=== PATIENT | male | born 1945 | race Caucasian/White ===

== ENCOUNTER 2017-03-01 05:38 | Inpatient (IN) ==
[2017-02-26 15:43] LABS: Basophils # 0.1 10*3/uL (0.0-0.2); Eosinophils # 1.2 10*3/uL (0.0-0.87); Eosinophils % 15.2 % (0.00-10.9); Hemoglobin 14.1 GM/DL (14.0-18.0); Immature Granulocytes % 0.1 %; Immature Granulocytes Absolute 0.01 #; Lymphocytes # 2.3 10*3/uL (1.4-4.0); Lymphocytes % 29.3 % (21.2-54.2); Mean Corpuscular HGB Conc 33.6 GM/DL (32-36); Mean Corpuscular Hemoglobin 28 PG (27-34); Mean Corpuscular Volume 83.8 FL (87-102); Mean Platelet Volume 10.2 FL (9.6-12.0); Monocytes # 0.8 10*3/uL (0.11-0.8); Monocytes % 9.9 % (1.7-12.7); Neutrophils # 3.4 10*3/uL (1.4-7.4); Neutrophils % 44.5 % (38.7-73.9); Platelet Count 153 T/CUMM (130-400); Red Blood Count 5.01 MC/CUMM (3.8-5.5); Red Cell Distribution Width 19.5 % (9.3-17.3); White Blood Count 7.7 T/CUMM (4-12)
[2017-02-26 16:17] LABS: Calcium 9.2 MG/DL (8.5-10.1); Osmolality,Calculated 274.8 MOS/KG (273-304); Potassium 4.5 MMOL/L (3.5-5.1)
[2017-02-26 17:58] LABS: Eosinophils 20 % (0-10); Lymphocytes 35 % (20-55); Segmented Neutrophils 42 % (50-85); Total Cells Counted 100
[2017-02-26 17:59] LABS: Platelet Estimate Decreased
[2017-02-26 18:00] LABS: Hypochromasia 1+; Microcytosis 1+
[2017-03-01] MEDS ORDERED: ALVIMOPAN 12 MG CAPSULE PO ONE (06:00)
[2017-03-01] MEDS ORDERED: cefOXitin 1,000 MG in SYRINGE 1 EACH IV ONE (06:00)
[2017-03-01] MEDS ORDERED: BUPIVACAINE 0.5% /EPI 10 ML VIAL ONE (06:23)
[2017-03-01] MEDS: LACTATED RINGERS 1,000 ML IV SCH (07:10)
[2017-03-01] MEDS ORDERED: ALVIMOPAN 12 MG CAPSULE ONE (07:15)
[2017-03-01] MEDS ORDERED: IPRATROPIUM 500 MCG/2.5 ML NEB RESP TX ONE (07:29)
[2017-03-01] MEDS ORDERED: FAMOTIDINE 20 MG TABLET PO ONE (07:29)
[2017-03-01] MEDS ORDERED: EPINEPHrine 1 MG/ML VIAL ONE (08:40)
[2017-03-01] MEDS ORDERED: PROPOFOL 200 MG/20 ML VIAL IV ONE ×2 (09:00→11:45)
[2017-03-01] MEDS ORDERED: ROCURONIUM 100 MG/10 ML VIAL IV ONE ×2 (09:00→11:46)
[2017-03-01] MEDS ORDERED: ONDANSETRON 4 MG/2 ML VIAL ONE (09:00)
[2017-03-01] MEDS ORDERED: SUCCINYLCHOLINE 200 MG/10 ML VIAL ONE ×2 (09:00→11:46)
[2017-03-01] MEDS ORDERED: GLYCOPYRROLATE 0.4 MG/2 ML VIAL ONE ×2 (09:00→11:45)
[2017-03-01] MEDS ORDERED: SEVOFLURANE 1 UNIT/15 MINUTE INH ONE ×2 (09:00→11:45)
[2017-03-01] MEDS ORDERED: LIDOCAINE 100 MG/5 ML SYRINGE ONE (09:00)
[2017-03-01] MEDS ORDERED: PHENYLEPHRINE 1 MG/10 ML SYRINGE IV ONE (09:00)
[2017-03-01] MEDS ORDERED: NEOSTIGMINE 10 MG/10 ML VIAL ONE ×2 (09:00→11:46)
[2017-03-01 10:38] LABS: Apearance,Urine CLEAR (Clear); Bilirubin,Urine Negative (Negative); Blood, Urine Negative (Negative); Glucose,Urine (UA) 50 mg/dL (Negative); Hyaline Casts,Urine 2 /LPF (0-3); Ketones,Urine Negative (Negative); Mucus,Urine Occasional /LPF (Occasional); Nitrite,Urine Negative (Negative); Protein,Urine Negative; RBC,Urine 1 /HPF (0-4); Urine Color Yellow (Yellow); Urine Specific Gravity 1.009 (1.001-1.035); Urine Urobilinogen < 2.0 EU/DL (0.2-1.0); WBC,Urine <1 /HPF (0-6)
[2017-03-01] MEDS ORDERED: ONDANSETRON 4 MG/2 ML VIAL IV PRN (11:09)
[2017-03-01] MEDS ORDERED: GLUCAGON 1 MG VIAL IM PRN (11:13)
[2017-03-01] MEDS ORDERED: DEXTROSE 50% 25 GM/50 ML VIAL IV PRN (11:13)
[2017-03-01] MEDS ORDERED: BUPIVACAINE 0.25% /EPI 10 ML VIAL ONE (11:20)
[2017-03-01] MEDS ORDERED: DEXTROSE 5% LACTATED RINGERS 1,000 ML IV SCH (11:30)
[2017-03-01] MEDS ORDERED: SUFentanil 50 MCG/ML AMP ONE (11:44)
[2017-03-01] MEDS ORDERED: DEXAMETHASONE 10 MG/1 ML VIAL ONE (11:45)
[2017-03-01] MEDS ORDERED: ACETAMINOPHEN 1,000 MG/100 ML VIAL IV ONE (11:46)
[2017-03-01] MEDS ORDERED: LACTATED RINGERS 1,000 ML IV ONE (11:46)
[2017-03-01] MEDS ORDERED: hydrALAZINE 20 MG/1 ML VIAL ONE (11:50)
[2017-03-01] MEDS ORDERED: MORPHINE PCA 30 MG/30 ML SYRINGE IV ONE (11:53)
[2017-03-01] MEDS ORDERED: hydrALAZINE 20 MG/1 ML VIAL IV PRN (11:53)
[2017-03-01] MEDS: MORPHINE PCA 30 MG/30 ML SYRINGE IV SCH (11:54)
[2017-03-01 12:42] LABS: Hematocrit 43.1 VOL% (42.0-52.0); Hemoglobin 14.2 GM/DL (14.0-18.0)
[2017-03-01] MEDS ORDERED: ALBUTEROL 2.5 MG/3 ML NEB RESP TX PRN (13:00)
[2017-03-01] MEDS: INSULIN REGULAR 100 UNIT/ML SUBCUT SCH ×3 (13:49→18:50)
[2017-03-01] MEDS: SODIUM CHLORIDE 0.9% 1,000 ML IV SCH ×2 (14:32→22:33)
[2017-03-01] MEDS: cefOXitin 2,000 MG in SYRINGE 1 EACH IV SCH ×2 (17:32→22:33)
[2017-03-01 20:08] LABS: Hematocrit 42.6 VOL% (42.0-52.0); Hemoglobin 14.2 GM/DL (14.0-18.0)
[2017-03-01] MEDS: CARVEDILOL 12.5 MG TABLET PO SCH (21:28)
[2017-03-01] MEDS: ATORVASTATIN 20 MG TABLET PO SCH (21:28)
[2017-03-01] MEDS: ALVIMOPAN 12 MG CAPSULE PO SCH (21:28)
[2017-03-02] MEDS: INSULIN REGULAR 100 UNIT/ML SUBCUT SCH ×6 (01:12→23:31)
[2017-03-02] MEDS: cefOXitin 2,000 MG in SYRINGE 1 EACH IV SCH (05:57)
[2017-03-02] MEDS: SODIUM CHLORIDE 0.9% 1,000 ML IV SCH ×2 (06:44→15:44)
[2017-03-02 07:08] LABS: Basophils % 0.3 % (0.0-0.8); Eosinophils # 0.1 10*3/uL (0.0-0.87); Eosinophils % 0.5 % (0.00-10.9); Hematocrit 40.3 VOL% (42.0-52.0); Hemoglobin 13.5 GM/DL (14.0-18.0); Immature Granulocytes % 0.4 %; Immature Granulocytes Absolute 0.05 #; Lymphocytes # 1.2 10*3/uL (1.4-4.0); Mean Corpuscular HGB Conc 33.5 GM/DL (32-36); Mean Corpuscular Hemoglobin 28 PG (27-34); Monocytes % 8.3 % (1.7-12.7); Neutrophils # 9.9 10*3/uL (1.4-7.4); Neutrophils % 80.5 % (38.7-73.9); Platelet Count 159 T/CUMM (130-400); Red Cell Distribution Width 18.8 % (9.3-17.3); White Blood Count 12.2 T/CUMM (4-12)
[2017-03-02 07:36] LABS: Calcium 8.3 MG/DL (8.5-10.1); Osmolality,Calculated 277.7 MOS/KG (273-304); Potassium 4.6 MMOL/L (3.5-5.1)
[2017-03-02 07:37] LABS: Hypochromasia 1+; Microcytosis 1+
[2017-03-02 07:38] LABS: Ovalocytes Few; Platelet Estimate Adequate
[2017-03-02] MEDS: LISINOPRIL 10 MG TABLET PO SCH (11:09)
[2017-03-02] MEDS: MAGNESIUM GLUCONATE 500 MG TABLET PO SCH (11:10)
[2017-03-02] MEDS: CARVEDILOL 12.5 MG TABLET PO SCH ×2 (11:10→21:13)
[2017-03-02] MEDS: ALVIMOPAN 12 MG CAPSULE PO SCH ×2 (11:10→21:13)
[2017-03-02] MEDS: PANTOPRAZOLE 40 MG TABLET PO SCH (11:10)
[2017-03-02] MEDS: MORPHINE PCA 30 MG/30 ML SYRINGE IV SCH ×2 (11:11→23:31)
[2017-03-02] MEDS: LACTATED RINGERS 1,000 ML IV SCH (13:55)
[2017-03-02] MEDS: ATORVASTATIN 20 MG TABLET PO SCH (21:13)
[2017-03-03 03:47] LABS: Basophils # 0.1 10*3/uL (0.0-0.2); Basophils % 0.6 % (0.0-0.8); Eosinophils # 0.8 10*3/uL (0.0-0.87); Eosinophils % 8.8 % (0.00-10.9); Hematocrit 35.9 VOL% (42.0-52.0); Hemoglobin 11.8 GM/DL (14.0-18.0); Immature Granulocytes % 0.4 %; Immature Granulocytes Absolute 0.04 #; Lymphocytes # 1.3 10*3/uL (1.4-4.0); Lymphocytes % 13.6 % (21.2-54.2); Mean Corpuscular HGB Conc 32.9 GM/DL (32-36); Mean Corpuscular Hemoglobin 28 PG (27-34); Mean Corpuscular Volume 85.5 FL (87-102); Monocytes # 0.7 10*3/uL (0.11-0.8); Monocytes % 7.5 % (1.7-12.7); Neutrophils # 6.5 10*3/uL (1.4-7.4); Neutrophils % 69.1 % (38.7-73.9); Platelet Count 135 T/CUMM (130-400); Red Cell Distribution Width 18.7 % (9.3-17.3); White Blood Count 9.4 T/CUMM (4-12)
[2017-03-03 04:29] LABS: Magnesium 1.7 MG/DL (1.8-2.4); Potassium 4.2 MMOL/L (3.5-5.1)
[2017-03-03 04:46] LABS: Anisocytosis 1+; Platelet Estimate Normal
[2017-03-03] MEDS: SODIUM CHLORIDE 0.9% 1,000 ML IV SCH ×2 (05:04→17:57)
[2017-03-03] MEDS: INSULIN REGULAR 100 UNIT/ML SUBCUT SCH ×4 (06:22→23:50)
[2017-03-03] MEDS: CARVEDILOL 12.5 MG TABLET PO SCH ×2 (08:35→20:41)
[2017-03-03] MEDS: LISINOPRIL 10 MG TABLET PO SCH (08:35)
[2017-03-03] MEDS: MAGNESIUM GLUCONATE 500 MG TABLET PO SCH (08:35)
[2017-03-03] MEDS: PANTOPRAZOLE 40 MG TABLET PO SCH (08:35)
[2017-03-03] MEDS: ALVIMOPAN 12 MG CAPSULE PO SCH ×2 (08:35→20:41)
[2017-03-03] MEDS: MORPHINE PCA 30 MG/30 ML SYRINGE IV SCH (12:03)
[2017-03-03] MEDS: ATORVASTATIN 20 MG TABLET PO SCH (20:41)
[2017-03-04] MEDS: INSULIN REGULAR 100 UNIT/ML SUBCUT SCH ×3 (06:33→18:19)
[2017-03-04] MEDS: CARVEDILOL 12.5 MG TABLET PO SCH ×2 (08:28→20:17)
[2017-03-04] MEDS: LISINOPRIL 10 MG TABLET PO SCH (08:29)
[2017-03-04] MEDS: ALVIMOPAN 12 MG CAPSULE PO SCH ×2 (08:29→20:17)
[2017-03-04] MEDS: MAGNESIUM GLUCONATE 500 MG TABLET PO SCH (08:29)
[2017-03-04] MEDS: PANTOPRAZOLE 40 MG TABLET PO SCH (08:29)
[2017-03-04] MEDS: SODIUM CHLORIDE 0.9% 1,000 ML IV SCH (10:27)
[2017-03-04] MEDS: MORPHINE PCA 30 MG/30 ML SYRINGE IV SCH (11:50)
[2017-03-04] MEDS: ATORVASTATIN 20 MG TABLET PO SCH (20:17)
[2017-03-05] MEDS: INSULIN REGULAR 100 UNIT/ML SUBCUT SCH ×2 (00:57→06:24)
[2017-03-05 05:04] LABS: Basophils % 0.6 % (0.0-0.8); Eosinophils # 0.8 10*3/uL (0.0-0.87); Eosinophils % 15.8 % (0.00-10.9); Hematocrit 34.4 VOL% (42.0-52.0); Hemoglobin 11.6 GM/DL (14.0-18.0); Immature Granulocytes % 0.4 %; Immature Granulocytes Absolute 0.02 #; Lymphocytes # 0.9 10*3/uL (1.4-4.0); Lymphocytes % 16.9 % (21.2-54.2); Mean Corpuscular HGB Conc 33.7 GM/DL (32-36); Mean Corpuscular Hemoglobin 28 PG (27-34); Mean Corpuscular Volume 83.9 FL (87-102); Mean Platelet Volume 10.8 FL (9.6-12.0); Monocytes # 0.6 10*3/uL (0.11-0.8); Monocytes % 10.7 % (1.7-12.7); Neutrophils % 55.6 % (38.7-73.9); Platelet Count 131 T/CUMM (130-400); Red Cell Distribution Width 17.8 % (9.3-17.3); White Blood Count 5.3 T/CUMM (4-12)
[2017-03-05 05:34] LABS: Calcium 8.1 MG/DL (8.5-10.1); Magnesium 1.8 MG/DL (1.8-2.4); Osmolality,Calculated 283.3 MOS/KG (273-304); Potassium 4.1 MMOL/L (3.5-5.1)
[2017-03-05 05:35] LABS: Band Neutrophils 1 % (0-10); Eosinophils 18 % (0-10); Hypochromasia 1+; Lymphocytes 15 % (20-55); Platelet Estimate Normal; Segmented Neutrophils 57 % (50-85); Total Cells Counted 100
[2017-03-05 05:36] LABS: Giant Platelets Few; Microcytosis Slight; Ovalocytes Slight
[2017-03-05] MEDS ORDERED: BISACODYL 10 MG SUPP RECTAL ONE (07:46)
[2017-03-05 09:08] VITALS: BP 187/95
[2017-03-05] MEDS: LISINOPRIL 10 MG TABLET PO SCH (09:30)
[2017-03-05] MEDS: MAGNESIUM GLUCONATE 500 MG TABLET PO SCH (09:30)
[2017-03-05] MEDS: ALVIMOPAN 12 MG CAPSULE PO SCH (09:30)
[2017-03-05] MEDS: CARVEDILOL 12.5 MG TABLET PO SCH (09:30)
[2017-03-05] MEDS: PANTOPRAZOLE 40 MG TABLET PO SCH (09:31)
== END 2017-03-05 12:53 | disposition home or self-care (01) | DRG 331 ==
LOC: N.OR 05:38 → N.SDSINP 05:39 → N.4E 11:09
PROVIDERS: ADMIT Surgery; ATTEND Surgery

== ENCOUNTER 2021-11-01 16:25 | Inpatient (IN) ==
[2021-11-01 17:12] LABS: Basophils % 0.4 % (0.0-0.8); Eosinophils # 0.3 10*3/uL (0.0-0.87); Eosinophils % 6.9 % (0.00-10.9); Hematocrit 18.6 VOL% (42.0-52.0); Immature Granulocytes % 0.2 %; Immature Granulocytes Absolute 0.01 #; Lymphocytes # 0.7 10*3/uL (1.4-4.0); Lymphocytes % 15.8 % (21.2-54.2); Mean Corpuscular Volume 81.6 FL (87-102); Mean Platelet Volume 11.5 FL (9.6-12.0); Monocytes # 0.8 10*3/uL (0.11-0.8); Monocytes % 17.6 % (1.7-12.7); NRBC # 0.03 10*3/uL; Neutrophils % 59.1 % (38.7-73.9); Platelet Count 91 T/CUMM (130-400); Red Blood Count 2.28 MC/CUMM (3.8-5.5); Red Cell Distribution Width 17.2 % (9.3-17.3); White Blood Count 4.5 T/CUMM (4-12)
[2021-11-01] MEDS ORDERED: ALBUTEROL/IPRATROPIUM 3 ML NEB RESP TX STA (17:18)
[2021-11-01 17:22] LABS: Hemoglobin 5.4 GM/DL (14.0-18.0)
[2021-11-01 17:34] LABS: Albumin 3.6 G/DL (3.4-5.0); Bilirubin,Total 0.7 MG/DL (0.20-1.00); Calcium 8.6 MG/DL (8.5-10.1); Osmolality,Calculated 275.1 MOS/KG (273-304); Potassium 4.8 MMOL/L (3.5-5.1); Total Protein 6.2 G/DL (6.4-8.2)
[2021-11-01 17:42] LABS: Thyroid Stimulating Hormone 2.96 uIU/ml (0.358-3.74)
[2021-11-01] MEDS ORDERED: SODIUM CHLORIDE 0.9% 1,000 ML IV STA (18:07)
[2021-11-01] MEDS ORDERED: ZALEPLON 5 MG CAPSULE PO PRN (18:27)
[2021-11-01] MEDS ORDERED: SODIUM CHLORIDE 0.9% 1,000 ML IV PRN (18:27)
[2021-11-01] MEDS ORDERED: ONDANSETRON 4 MG/2 ML VIAL IV PRN (18:27)
[2021-11-01] MEDS ORDERED: ACETAMINOPHEN 325 MG TABLET PO PRN (18:27)
[2021-11-01] MEDS ORDERED: GLUCAGON 1 MG VIAL IM PRN (19:13)
[2021-11-01] MEDS ORDERED: DEXTROSE 10% 250 ML BAG IV PRN (19:18)
[2021-11-01] MEDS ORDERED: MELATONIN 3 MG TABLET PO PRN (19:56)
[2021-11-01] MEDS: INSULIN REGULAR 100 UNIT/ML SUBCUT SCH (22:04)
[2021-11-01] MEDS: FAMOTIDINE 20 MG TABLET PO SCH (22:26)
[2021-11-01] MEDS: ASCORBIC ACID 500 MG TABLET PO SCH (22:26)
[2021-11-02 02:12] LABS: Hemoglobin 6.9 GM/DL (14.0-18.0)
[2021-11-02] MEDS ORDERED: SODIUM CHLORIDE 0.9% 1,000 ML IV PRN (03:26)
[2021-11-02] MEDS: CETIRIZINE 10 MG TABLET PO SCH (08:42)
[2021-11-02] MEDS: ASCORBIC ACID 500 MG TABLET PO SCH ×2 (08:42→21:58)
[2021-11-02] MEDS: INSULIN REGULAR 100 UNIT/ML SUBCUT SCH ×4 (08:43→22:02)
[2021-11-02] MEDS: FAMOTIDINE 20 MG TABLET PO SCH ×2 (08:43→21:58)
[2021-11-02] MEDS ORDERED: PANTOPRAZOLE 40 MG TABLET PO SCH (09:00)
[2021-11-02] MEDS ORDERED: CHOLECALCIFEROL 1,000 UNIT TABLET PO SCH (09:00)
[2021-11-02] MEDS ORDERED: ZINC GLUCONATE 50 MG TABLET PO SCH (09:00)
[2021-11-02 09:35] LABS: Albumin 3.4 G/DL (3.4-5.0); Bilirubin,Total 0.9 MG/DL (0.20-1.00); Calcium 7.9 MG/DL (8.5-10.1); Potassium 5.1 MMOL/L (3.5-5.1); Total Protein 6.5 G/DL (6.4-8.2)
[2021-11-02 09:44] LABS: Ferritin 10.1 ng/mL (26-388)
[2021-11-02] MEDS: CHOLECALCIFEROL 5,000 UNIT TABLET PO SCH ×2 (10:05→21:58)
[2021-11-02] MEDS: ZINC SULFATE 220 MG CAPSULE PO SCH (10:05)
[2021-11-02 10:15] LABS: Basophils % 0.8 % (0.0-0.8); Eosinophils # 0.2 10*3/uL (0.0-0.87); Eosinophils % 3.9 % (0.00-10.9); Hematocrit 25.8 VOL% (42.0-52.0); Hemoglobin 7.8 GM/DL (14.0-18.0); Immature Granulocytes % 0.8 %; Immature Granulocytes Absolute 0.03 #; Lymphocytes # 0.7 10*3/uL (1.4-4.0); Lymphocytes % 17.2 % (21.2-54.2); Mean Corpuscular HGB Conc 30.2 GM/DL (32-36); Mean Platelet Volume 12.5 FL (9.6-12.0); Monocytes # 0.7 10*3/uL (0.11-0.8); NRBC # 0.06 10*3/uL; Neutrophils % 60.3 % (38.7-73.9); Platelet Count 94 T/CUMM (130-400); Red Blood Count 3.11 MC/CUMM (3.8-5.5); Red Cell Distribution Width 16.7 % (9.3-17.3); White Blood Count 3.9 T/CUMM (4-12)
[2021-11-02 10:38] LABS: Anisocytosis 1+; Band Neutrophils 6 % (0-10); Eosinophils 5 % (0-10); Lymphocytes 18 % (20-55); Metamyelocytes 1 %; Nucleated Red Blood Cells 2 /100 WBC (0-5); Platelet Estimate Decreased; Poikilocytosis Slight; Total Cells Counted 100
[2021-11-02] MEDS: carvediloL 12.5 MG TABLET PO SCH ×2 (11:04→17:00)
[2021-11-02] MEDS: DEXTROSE 5% NACL 0.45% 1,000 ML IV SCH (11:10)
[2021-11-02] MEDS ORDERED: DEXTROSE 50% 25 GM/50 ML VIAL IV PRN (12:08)
[2021-11-02] MEDS ORDERED: GLUCAGON 1 MG VIAL IM PRN (12:08)
[2021-11-02] MEDS: DEXAMETHASONE 4 MG TABLET PO SCH (16:03)
[2021-11-02 18:22] LABS: Hematocrit 26.9 VOL% (42.0-52.0); Hemoglobin 8.2 GM/DL (14.0-18.0)
[2021-11-02] MEDS ORDERED: ALBUTEROL 2.5 MG/3 ML NEB RESP TX PRN (19:00)
[2021-11-02] MEDS ORDERED: ATORVASTATIN 20 MG TABLET PO SCH (21:00)
[2021-11-02] MEDS ORDERED: MELATONIN 3 MG TABLET PO SCH (21:00)
[2021-11-02] MEDS: FERROUS SULFATE 325 MG TABLET PO SCH (21:58)
[2021-11-03 06:23] LABS: Basophils % 0.3 % (0.0-0.8); Hematocrit 28.4 VOL% (42.0-52.0); Hemoglobin 8.6 GM/DL (14.0-18.0); Immature Granulocytes % 1.7 %; Immature Granulocytes Absolute 0.06 #; Lymphocytes # 0.3 10*3/uL (1.4-4.0); Lymphocytes % 9.2 % (21.2-54.2); Mean Corpuscular HGB Conc 30.3 GM/DL (32-36); Mean Corpuscular Volume 84.3 FL (87-102); Mean Platelet Volume 12.4 FL (9.6-12.0); Monocytes # 0.3 10*3/uL (0.11-0.8); Monocytes % 7.5 % (1.7-12.7); NRBC # 0.08 10*3/uL; Neutrophils % 81.3 % (38.7-73.9); Platelet Count 88 T/CUMM (130-400); Red Blood Count 3.37 MC/CUMM (3.8-5.5); Red Cell Distribution Width 16.7 % (9.3-17.3); White Blood Count 3.5 T/CUMM (4-12)
[2021-11-03 06:48] LABS: Albumin 3.1 G/DL (3.4-5.0); Bilirubin,Total 0.8 MG/DL (0.20-1.00); Calcium 8.4 MG/DL (8.5-10.1); Osmolality,Calculated 281.4 MOS/KG (273-304); Potassium 5.5 MMOL/L (3.5-5.1); Total Protein 6.3 G/DL (6.4-8.2)
[2021-11-03 06:54] LABS: Hypochromia Slight; Microcytosis Slight; Platelet Estimate Decreased
[2021-11-03] MEDS ORDERED: SODIUM CHLORIDE 0.9% 1,000 ML IV SCH (07:30)
[2021-11-03] MEDS: DEXTROSE 5% NACL 0.45% 1,000 ML IV SCH (07:44)
[2021-11-03 07:54] VITALS: BP 142/62
[2021-11-03] MEDS ORDERED: SODIUM ZIRCONIUM CYCLOSILICATE 10 GM PACK PO SCH (09:00)
[2021-11-03] MEDS: carvediloL 12.5 MG TABLET PO SCH (09:27)
[2021-11-03] MEDS: ASCORBIC ACID 500 MG TABLET PO SCH (09:27)
[2021-11-03] MEDS: CHOLECALCIFEROL 5,000 UNIT TABLET PO SCH (09:27)
[2021-11-03] MEDS: CETIRIZINE 10 MG TABLET PO SCH (09:27)
[2021-11-03] MEDS: FERROUS SULFATE 325 MG TABLET PO SCH (09:27)
[2021-11-03] MEDS: FAMOTIDINE 20 MG TABLET PO SCH (09:29)
[2021-11-03] MEDS: DEXAMETHASONE 4 MG TABLET PO SCH (09:29)
[2021-11-03] MEDS: ZINC SULFATE 220 MG CAPSULE PO SCH (09:29)
[2021-11-03] MEDS: INSULIN REGULAR 100 UNIT/ML SUBCUT SCH ×2 (09:33→12:56)
== END 2021-11-03 13:20 | disposition home or self-care (01) | DRG 377 ==
LOC: N.ED 16:25 → N.EDINP 18:27 → N.3E 20:31 → N.TELEN 11-02 17:01
PROVIDERS: ADMIT Internal Medicine; ATTEND Internal Medicine

== ENCOUNTER 2021-12-29 19:03 | Inpatient (IN) ==
[2021-12-29] MEDS ORDERED: FUROSEMIDE 100 MG/10 ML VIAL IV STA (22:35)
[2021-12-29 22:59] LABS: Basophils # 0.1 10*3/uL (0.0-0.2); Basophils % 0.8 % (0.0-0.8); Eosinophils # 1.3 10*3/uL (0.0-0.87); Eosinophils % 16.1 % (0.00-10.9); Hematocrit 22.8 VOL% (42.0-52.0); Hemoglobin 6.7 GM/DL (14.0-18.0); Immature Granulocytes % 0.3 %; Immature Granulocytes Absolute 0.02 #; Lymphocytes # 1.1 10*3/uL (1.4-4.0); Lymphocytes % 14.3 % (21.2-54.2); Mean Corpuscular HGB Conc 29.4 GM/DL (32-36); Mean Corpuscular Volume 85.4 FL (87-102); Mean Platelet Volume 11.4 FL (9.6-12.0); Monocytes # 0.9 10*3/uL (0.11-0.8); Monocytes % 11.4 % (1.7-12.7); Neutrophils % 57.1 % (38.7-73.9); Platelet Count 163 T/CUMM (130-400); Red Blood Count 2.67 MC/CUMM (3.8-5.5); Red Cell Distribution Width 20.7 % (9.3-17.3); White Blood Count 7.8 T/CUMM (4-12)
[2021-12-29 23:21] LABS: Albumin 3.3 G/DL (3.4-5.0); Bilirubin,Total 0.4 MG/DL (0.20-1.00); Calcium 8.8 MG/DL (8.5-10.1); Osmolality,Calculated 291.7 MOS/KG (273-304); Potassium 4.8 MMOL/L (3.5-5.1); Total Protein 6.5 G/DL (6.4-8.2)
[2021-12-30] MEDS ORDERED: SODIUM CHLORIDE 0.9% 1,000 ML IV PRN (00:24)
[2021-12-30 00:30] LABS: Eosinophils 21 % (0-10); Lymphocytes 10 % (20-55); Platelet Estimate Adequate; Total Cells Counted 100
[2021-12-30] MEDS ORDERED: ONDANSETRON 4 MG/2 ML VIAL IV PRN (01:02)
[2021-12-30] MEDS ORDERED: FUROSEMIDE 20 MG/2 ML VIAL IV ONE (02:30)
[2021-12-30] MEDS ORDERED: INSULIN GLARGINE 100 UNIT/ML SUBCUT PRN (02:38)
[2021-12-30] MEDS ORDERED: methylPREDNISolone SOD SUC 125 MG/2 ML VIAL IV ONE (03:00)
[2021-12-30] MEDS: ALBUTEROL/IPRATROPIUM 3 ML NEB RESP TX SCH ×4 (03:10→19:21)
[2021-12-30 05:25] LABS: Basophils # 0.1 10*3/uL (0.0-0.2); Eosinophils # 0.8 10*3/uL (0.0-0.87); Eosinophils % 11.5 % (0.00-10.9); Hematocrit 24.2 VOL% (42.0-52.0); Hemoglobin 7.1 GM/DL (14.0-18.0); Immature Granulocytes % 0.5 %; Immature Granulocytes Absolute 0.04 #; Lymphocytes # 0.5 10*3/uL (1.4-4.0); Lymphocytes % 6.7 % (21.2-54.2); Mean Corpuscular HGB Conc 29.3 GM/DL (32-36); Mean Corpuscular Volume 85.5 FL (87-102); Mean Platelet Volume 11.4 FL (9.6-12.0); Monocytes # 0.4 10*3/uL (0.11-0.8); Monocytes % 5.1 % (1.7-12.7); NRBC # 0.02 10*3/uL; Neutrophils % 75.2 % (38.7-73.9); Platelet Count 157 T/CUMM (130-400); Red Blood Count 2.83 MC/CUMM (3.8-5.5); Red Cell Distribution Width 20.1 % (9.3-17.3); White Blood Count 7.3 T/CUMM (4-12)
[2021-12-30 05:36] LABS: INR 1.1; PT Patient Result 12.2 SECS (10.1-12.1)
[2021-12-30 05:47] LABS: Calcium 8.8 MG/DL (8.5-10.1); Osmolality,Calculated 290.5 MOS/KG (273-304); Potassium 4.5 MMOL/L (3.5-5.1)
[2021-12-30 06:28] LABS: Anisocytosis 2+; Band Neutrophils 9 % (0-10); Burr Cells Few; Eosinophils 13 % (0-10); Hypochromia Slight; Lymphocytes 5 % (20-55); Nucleated Red Blood Cells 1 /100 WBC (0-5); Ovalocytes Few; Platelet Estimate Normal; Total Cells Counted 100
[2021-12-30] MEDS: methylPREDNISolone SOD SUC 40 MG/1 ML VIAL IV SCH ×3 (08:56→21:02)
[2021-12-30] MEDS: carvediloL 12.5 MG TABLET PO SCH ×2 (08:57→21:00)
[2021-12-30] MEDS: GABAPENTIN 100 MG CAPSULE PO SCH ×2 (08:57→21:00)
[2021-12-30] MEDS: hydrALAZINE 25 MG TABLET PO SCH ×3 (08:57→21:00)
[2021-12-30] MEDS: MAGNESIUM OXIDE 400 MG TABLET PO SCH (08:58)
[2021-12-30] MEDS: DOCUSATE SODIUM 100 MG CAPSULE PO SCH ×2 (08:58→21:00)
[2021-12-30] MEDS: FUROSEMIDE 40 MG TABLET PO SCH (08:58)
[2021-12-30] MEDS: FERROUS SULFATE 325 MG TABLET PO SCH (08:58)
[2021-12-30] MEDS ORDERED: CHLORPHENIRAMINE PHENYLEPHRINE PO PRN (09:00)
[2021-12-30] MEDS ORDERED: GLUCAGON 1 MG VIAL IM PRN (09:04)
[2021-12-30] MEDS: BUDESONIDE/FORMOTEROL 160-4.5 INHALER 6 GM INH SCH ×2 (09:13→21:05)
[2021-12-30] MEDS ORDERED: DEXTROSE 10% 250 ML BAG IV PRN (09:16)
[2021-12-30] MEDS: PANTOPRAZOLE 40 MG VIAL IV SCH (21:03)
[2021-12-31] MEDS: ALBUTEROL/IPRATROPIUM 3 ML NEB RESP TX SCH ×4 (01:50→19:10)
[2021-12-31] MEDS: methylPREDNISolone SOD SUC 40 MG/1 ML VIAL IV SCH ×3 (02:44→21:30)
[2021-12-31 04:42] LABS: Basophils % 0.2 % (0.0-0.8); Hematocrit 27.8 VOL% (42.0-52.0); Hemoglobin 8.4 GM/DL (14.0-18.0); Immature Granulocytes % 0.9 %; Immature Granulocytes Absolute 0.04 #; Lymphocytes # 0.3 10*3/uL (1.4-4.0); Mean Corpuscular HGB Conc 30.2 GM/DL (32-36); Mean Corpuscular Volume 85.5 FL (87-102); Mean Platelet Volume 11.8 FL (9.6-12.0); Monocytes # 0.4 10*3/uL (0.11-0.8); NRBC # 0.04 10*3/uL; Neutrophils % 84.9 % (38.7-73.9); Platelet Count 149 T/CUMM (130-400); Red Blood Count 3.25 MC/CUMM (3.8-5.5); Red Cell Distribution Width 19.3 % (9.3-17.3); White Blood Count 4.7 T/CUMM (4-12)
[2021-12-31 05:11] LABS: Calcium 8.4 MG/DL (8.5-10.1); Osmolality,Calculated 301.5 MOS/KG (273-304); Potassium 5.2 MMOL/L (3.5-5.1)
[2021-12-31] MEDS ORDERED: INSULIN LISPRO 100 UNIT/ML SUBCUT ONE (05:45)
[2021-12-31] MEDS: INSULIN LISPRO 100 UNIT/ML SUBCUT SCH ×4 (07:44→21:00)
[2021-12-31] MEDS: DOCUSATE SODIUM 100 MG CAPSULE PO SCH ×2 (08:49→21:29)
[2021-12-31] MEDS: ROSUVASTATIN 20 MG TABLET PO SCH (08:49)
[2021-12-31] MEDS: GABAPENTIN 100 MG CAPSULE PO SCH ×2 (08:49→21:29)
[2021-12-31] MEDS: MAGNESIUM OXIDE 400 MG TABLET PO SCH (08:49)
[2021-12-31] MEDS: FERROUS SULFATE 325 MG TABLET PO SCH (08:49)
[2021-12-31] MEDS: FUROSEMIDE 40 MG TABLET PO SCH (08:56)
[2021-12-31] MEDS: carvediloL 12.5 MG TABLET PO SCH ×2 (08:56→21:29)
[2021-12-31] MEDS: hydrALAZINE 25 MG TABLET PO SCH ×3 (08:57→21:28)
[2021-12-31] MEDS: PANTOPRAZOLE 40 MG VIAL IV SCH ×2 (09:11→21:29)
[2021-12-31] MEDS: NICOTINE 21 MG/24 HR PATCH TRANSDERM SCH (10:42)
[2021-12-31] MEDS: BUDESONIDE/FORMOTEROL 160-4.5 INHALER 6 GM INH SCH ×2 (10:42→21:30)
[2021-12-31] MEDS ORDERED: FUROSEMIDE 40 MG TABLET PO ONE (18:03)
[2021-12-31] MEDS: INSULIN GLARGINE 100 UNIT/ML SUBCUT SCH (21:00)
[2021-12-31] MEDS ORDERED: INSULIN GLARGINE 100 UNIT/ML SUBCUT SCH (21:00)
[2022-01-01] MEDS: ALBUTEROL/IPRATROPIUM 3 ML NEB RESP TX SCH ×4 (07:26→18:43)
[2022-01-01 07:58] LABS: Basophils % 0.1 % (0.0-0.8); Hematocrit 26.5 VOL% (42.0-52.0); Hemoglobin 7.8 GM/DL (14.0-18.0); Immature Granulocytes % 0.9 %; Immature Granulocytes Absolute 0.14 #; Lymphocytes # 0.1 10*3/uL (1.4-4.0); Lymphocytes % 0.8 % (21.2-54.2); Mean Corpuscular HGB Conc 29.4 GM/DL (32-36); Mean Corpuscular Volume 87.7 FL (87-102); Mean Platelet Volume 11.1 FL (9.6-12.0); Monocytes # 1.3 10*3/uL (0.11-0.8); Monocytes % 8.1 % (1.7-12.7); NRBC # 0.09 10*3/uL; Neutrophils % 90.1 % (38.7-73.9); Platelet Count 142 T/CUMM (130-400); Red Blood Count 3.02 MC/CUMM (3.8-5.5); Red Cell Distribution Width 20.3 % (9.3-17.3); White Blood Count 16.2 T/CUMM (4-12)
[2022-01-01 08:21] LABS: Calcium 8.5 MG/DL (8.5-10.1); Osmolality,Calculated 294.5 MOS/KG (273-304); Potassium 4.3 MMOL/L (3.5-5.1)
[2022-01-01 08:39] LABS: Band Neutrophils 1 % (0-10); Hypochromia Slight; Lymphocytes 1 % (20-55); Microcytosis Slight; Nucleated Red Blood Cells 2 /100 WBC (0-5); Platelet Estimate Adequate; Total Cells Counted 100
[2022-01-01] MEDS: DOCUSATE SODIUM 100 MG CAPSULE PO SCH ×2 (09:32→21:25)
[2022-01-01] MEDS: FERROUS SULFATE 325 MG TABLET PO SCH (09:32)
[2022-01-01] MEDS: FUROSEMIDE 40 MG TABLET PO SCH (09:32)
[2022-01-01] MEDS: ACETAMINOPHEN 325 MG TABLET PO PRN (09:33)
[2022-01-01] MEDS: ROSUVASTATIN 20 MG TABLET PO SCH (09:33)
[2022-01-01] MEDS: MAGNESIUM OXIDE 400 MG TABLET PO SCH (09:34)
[2022-01-01] MEDS: GABAPENTIN 100 MG CAPSULE PO SCH ×2 (09:34→21:25)
[2022-01-01] MEDS: hydrALAZINE 25 MG TABLET PO SCH ×3 (09:35→21:09)
[2022-01-01] MEDS: carvediloL 12.5 MG TABLET PO SCH ×2 (09:35→21:09)
[2022-01-01] MEDS: INSULIN LISPRO 100 UNIT/ML SUBCUT SCH ×4 (09:36→21:25)
[2022-01-01] MEDS: PANTOPRAZOLE 40 MG VIAL IV SCH ×2 (09:37→21:26)
[2022-01-01] MEDS: methylPREDNISolone SOD SUC 40 MG/1 ML VIAL IV SCH ×2 (09:41→21:26)
[2022-01-01] MEDS: BUDESONIDE/FORMOTEROL 160-4.5 INHALER 6 GM INH SCH ×2 (09:44→21:26)
[2022-01-01] MEDS: NICOTINE 21 MG/24 HR PATCH TRANSDERM SCH (09:45)
[2022-01-01 11:32] LABS: Ferritin 24.5 ng/mL (26-388)
[2022-01-01 11:35] LABS: Folate 7.95 NG/ML (5.38-24.0)
[2022-01-01] MEDS ORDERED: BISACODYL 5 MG TABLET PO ONE (11:42)
[2022-01-01] MEDS: AZITHROMYCIN INJ 500 MG in SODIUM CHLORIDE 0.9% 250 ML IV SCH (14:05)
[2022-01-01] MEDS: cefTRIAXone 1,000 MG in SODIUM CHLORIDE 0.9% 100 ML IV SCH (16:23)
[2022-01-01] MEDS: INSULIN GLARGINE 100 UNIT/ML SUBCUT SCH (21:25)
[2022-01-01 23:13] LABS: Urine Appearance Clear (Clear); Urine Color Yellow (Yellow); Urine pH 5.5 (4.5-8.0)
[2022-01-01 23:14] LABS: Bilirubin,Urine Negative (Negative); Blood, Urine Negative (Negative); Glucose,Urine (UA) Negative (Negative); Ketones,Urine Negative (Negative); Nitrite,Urine Negative (Negative); Protein,Urine Negative (Negative); Urine Urobilinogen 0.2 eU/dL (<2.0)
[2022-01-01 23:16] LABS: Hyaline Casts,Urine 38 /LPF (0-3); Mucus,Urine Occasional /LPF (Occasional); RBC,Urine <1 /HPF (0-4)
[2022-01-02 05:26] LABS: Basophils % 0.1 % (0.0-0.8); Hematocrit 30.8 VOL% (42.0-52.0); Immature Granulocytes % 0.7 %; Immature Granulocytes Absolute 0.09 #; Lymphocytes # 0.3 10*3/uL (1.4-4.0); Lymphocytes % 2.2 % (21.2-54.2); Mean Corpuscular HGB Conc 29.2 GM/DL (32-36); Mean Corpuscular Volume 88.3 FL (87-102); Mean Platelet Volume 11.1 FL (9.6-12.0); Monocytes # 0.6 10*3/uL (0.11-0.8); NRBC # 0.06 10*3/uL; Platelet Count 143 T/CUMM (130-400); Red Blood Count 3.49 MC/CUMM (3.8-5.5); Red Cell Distribution Width 20.7 % (9.3-17.3); White Blood Count 12.4 T/CUMM (4-12)
[2022-01-02 05:45] LABS: Calcium 8.5 MG/DL (8.5-10.1); Osmolality,Calculated 289.2 MOS/KG (273-304); Potassium 4.6 MMOL/L (3.5-5.1)
[2022-01-02 05:50] LABS: Band Neutrophils 1 % (0-10); Hypochromia 1+; Lymphocytes 2 % (20-55); Microcytosis 1+; Nucleated Red Blood Cells 1 /100 WBC (0-5); Ovalocytes Slight; Platelet Estimate Adequate; Total Cells Counted 100
[2022-01-02] MEDS: ALBUTEROL/IPRATROPIUM 3 ML NEB RESP TX SCH ×4 (07:05→19:22)
[2022-01-02] MEDS: ROSUVASTATIN 20 MG TABLET PO SCH (11:31)
[2022-01-02] MEDS: GABAPENTIN 100 MG CAPSULE PO SCH ×2 (11:31→20:52)
[2022-01-02] MEDS: FUROSEMIDE 40 MG TABLET PO SCH (11:33)
[2022-01-02] MEDS: MAGNESIUM OXIDE 400 MG TABLET PO SCH (11:34)
[2022-01-02] MEDS: FERROUS SULFATE 325 MG TABLET PO SCH (11:36)
[2022-01-02] MEDS: carvediloL 12.5 MG TABLET PO SCH ×2 (11:38→20:52)
[2022-01-02] MEDS: DOCUSATE SODIUM 100 MG CAPSULE PO SCH ×2 (11:38→20:52)
[2022-01-02] MEDS: ACETAMINOPHEN 325 MG TABLET PO PRN (11:39)
[2022-01-02] MEDS: methylPREDNISolone SOD SUC 40 MG/1 ML VIAL IV SCH ×3 (11:47→17:49)
[2022-01-02] MEDS: PANTOPRAZOLE 40 MG VIAL IV SCH ×2 (11:47→20:53)
[2022-01-02] MEDS: BUDESONIDE/FORMOTEROL 160-4.5 INHALER 6 GM INH SCH ×2 (11:48→20:53)
[2022-01-02] MEDS: INSULIN LISPRO 100 UNIT/ML SUBCUT SCH ×4 (11:49→20:53)
[2022-01-02] MEDS: NICOTINE 21 MG/24 HR PATCH TRANSDERM SCH (11:49)
[2022-01-02] MEDS: hydrALAZINE 25 MG TABLET PO SCH ×3 (11:49→20:52)
[2022-01-02] MEDS: AZITHROMYCIN INJ 500 MG in SODIUM CHLORIDE 0.9% 250 ML IV SCH (14:50)
[2022-01-02] MEDS: cefTRIAXone 1,000 MG in SODIUM CHLORIDE 0.9% 100 ML IV SCH (16:04)
[2022-01-02] MEDS: FERRIC GLUCONATE COMPLEX 125 MG in SODIUM CHLORIDE 0.9% 100 ML IV SCH (16:44)
[2022-01-02] MEDS ORDERED: INSULIN GLARGINE 100 UNIT/ML SUBCUT SCH (21:00)
[2022-01-03] MEDS: ALBUTEROL/IPRATROPIUM 3 ML NEB RESP TX SCH ×2 (00:10→07:27)
[2022-01-03] MEDS: methylPREDNISolone SOD SUC 40 MG/1 ML VIAL IV SCH ×2 (01:55→09:33)
[2022-01-03] MEDS: ACETAMINOPHEN 325 MG TABLET PO PRN ×2 (01:58→09:56)
[2022-01-03 04:38] LABS: Eosinophils % 0.1 % (0.00-10.9); Hemoglobin 8.2 GM/DL (14.0-18.0); Immature Granulocytes % 0.9 %; Immature Granulocytes Absolute 0.07 #; Lymphocytes # 0.2 10*3/uL (1.4-4.0); Lymphocytes % 2.9 % (21.2-54.2); Mean Corpuscular HGB Conc 29.3 GM/DL (32-36); Mean Corpuscular Volume 88.1 FL (87-102); Mean Platelet Volume 11.3 FL (9.6-12.0); Monocytes # 0.5 10*3/uL (0.11-0.8); Monocytes % 6.3 % (1.7-12.7); NRBC # 0.09 10*3/uL; Neutrophils % 89.8 % (38.7-73.9); Platelet Count 129 T/CUMM (130-400); Red Blood Count 3.18 MC/CUMM (3.8-5.5); Red Cell Distribution Width 20.6 % (9.3-17.3); White Blood Count 7.5 T/CUMM (4-12)
[2022-01-03 04:49] LABS: Calcium 8.6 MG/DL (8.5-10.1); Osmolality,Calculated 294.1 MOS/KG (273-304); Potassium 4.6 MMOL/L (3.5-5.1)
[2022-01-03 05:13] LABS: Band Neutrophils 4 % (0-10); Hypochromia Slight; Lymphocytes 1 % (20-55); Microcytosis Slight; Nucleated Red Blood Cells 1 /100 WBC (0-5); Ovalocytes Slight; Total Cells Counted 100
[2022-01-03 09:02] VITALS: BP 123/58
[2022-01-03] MEDS: FERRIC GLUCONATE COMPLEX 125 MG in SODIUM CHLORIDE 0.9% 100 ML IV SCH (09:31)
[2022-01-03] MEDS: carvediloL 12.5 MG TABLET PO SCH (09:32)
[2022-01-03] MEDS: ROSUVASTATIN 20 MG TABLET PO SCH (09:32)
[2022-01-03] MEDS: MAGNESIUM OXIDE 400 MG TABLET PO SCH (09:32)
[2022-01-03] MEDS: FUROSEMIDE 40 MG TABLET PO SCH (09:32)
[2022-01-03] MEDS: GABAPENTIN 100 MG CAPSULE PO SCH (09:32)
[2022-01-03] MEDS: hydrALAZINE 25 MG TABLET PO SCH (09:32)
[2022-01-03] MEDS: INSULIN LISPRO 100 UNIT/ML SUBCUT SCH ×2 (09:32→13:19)
[2022-01-03] MEDS: DOCUSATE SODIUM 100 MG CAPSULE PO SCH (09:32)
[2022-01-03] MEDS: PANTOPRAZOLE 40 MG VIAL IV SCH (09:33)
[2022-01-03] MEDS: NICOTINE 21 MG/24 HR PATCH TRANSDERM SCH (09:44)
[2022-01-03] MEDS: BUDESONIDE/FORMOTEROL 160-4.5 INHALER 6 GM INH SCH (09:56)
== END 2022-01-03 12:20 | disposition home or self-care (01) | DRG 812 ==
LOC: N.ED 19:03 → SUATTDRO 12-30 01:05 → N.TELEN 12-30 01:05
PROVIDERS: ADMIT Internal Medicine; ATTEND Internal Medicine

== ENCOUNTER 2022-04-27 20:38 | Inpatient (IN) ==
[2022-04-27] MEDS ORDERED: ASPIRIN 325 MG TABLET PO STA (23:31)
[2022-04-27] MEDS ORDERED: FUROSEMIDE 40 MG/4 ML VIAL IV STA (23:31)
[2022-04-27 23:46] LABS: INR 1.1; PT Patient Result 11.6 SECS (10.1-12.1)
[2022-04-27 23:50] LABS: Albumin 3.6 G/DL (3.4-5.0); Bilirubin,Total 0.4 MG/DL (0.20-1.00); Osmolality,Calculated 294.4 MOS/KG (273-304); Total Protein 6.4 G/DL (6.4-8.2)
[2022-04-27 23:57] LABS: Potassium 6.1 MMOL/L (3.5-5.1)
[2022-04-28 00:17] LABS: Basophils % 0.6 % (0.0-0.8); Eosinophils # 1.5 10*3/uL (0.0-0.87); Eosinophils % 21.9 % (0.00-10.9); Hemoglobin 6.9 GM/DL (14.0-18.0); Immature Granulocytes % 0.3 %; Immature Granulocytes Absolute 0.02 #; Lymphocytes # 0.9 10*3/uL (1.4-4.0); Lymphocytes % 13.2 % (21.2-54.2); Mean Corpuscular HGB Conc 27.8 GM/DL (32-36); Mean Corpuscular Volume 107.8 FL (87-102); Mean Platelet Volume 11.5 FL (9.6-12.0); Monocytes # 0.5 10*3/uL (0.11-0.8); Monocytes % 7.6 % (1.7-12.7); NRBC # 0.02 10*3/uL; Neutrophils % 56.4 % (38.7-73.9); Platelet Count 165 T/CUMM (130-400); Red Cell Distribution Width 17.3 % (9.3-17.3); White Blood Count 6.8 T/CUMM (4-12)
[2022-04-28 00:19] LABS: Hematocrit 24.8 VOL% (42.0-52.0)
[2022-04-28] MEDS ORDERED: SODIUM CHLORIDE 0.9% 1,000 ML IV PRN (00:28)
[2022-04-28] MEDS ORDERED: PANTOPRAZOLE INJ 80 MG in SODIUM CHLORIDE 0.9% 100 ML IV ONE (00:28)
[2022-04-28] MEDS ORDERED: INSULIN REGULAR 100 UNIT/ML IV ONE (00:42)
[2022-04-28] MEDS ORDERED: SODIUM POLYSTYRENE SULFATE 15 GM/60 ML BOTTLE RECTAL STA (00:43)
[2022-04-28] MEDS ORDERED: DEXTROSE 50% 25 GM/50 ML SYRINGE IV STA (00:45)
[2022-04-28 00:48] LABS: Eosinophils 25 % (0-10); Lymphocytes 8 % (20-55); Platelet Estimate Adequate; Total Cells Counted 100
[2022-04-28 00:49] LABS: Hypochromia Slight
[2022-04-28] MEDS ORDERED: MORPHINE 2 MG/1 ML SYRINGE IV PRN (01:36)
[2022-04-28] MEDS ORDERED: ONDANSETRON 4 MG/2 ML VIAL IV PRN (01:36)
[2022-04-28] MEDS ORDERED: hydrALAZINE 20 MG/1 ML VIAL IV PRN (01:36)
[2022-04-28] MEDS ORDERED: ACETAMINOPHEN 325 MG TABLET PO PRN (01:36)
[2022-04-28 05:41] LABS: Calcium 9.2 MG/DL (8.5-10.1); Osmolality,Calculated 291.4 MOS/KG (273-304); Potassium 5.1 MMOL/L (3.5-5.1)
[2022-04-28] MEDS: INSULIN LISPRO 100 UNIT/ML SUBCUT SCH ×3 (06:35→18:03)
[2022-04-28] MEDS: ALBUTEROL/IPRATROPIUM 3 ML NEB RESP TX SCH ×4 (07:24→23:42)
[2022-04-28] MEDS: PANTOPRAZOLE INJ 200 MG in SODIUM CHLORIDE 0.9% 250 ML IV SCH (08:27)
[2022-04-28] MEDS: FUROSEMIDE 40 MG/4 ML VIAL IV SCH ×2 (09:27→18:04)
[2022-04-28 10:40] LABS: Basophils % 0.5 % (0.0-0.8); Eosinophils % 13.4 % (0.00-10.9); Hematocrit 28.4 VOL% (42.0-52.0); Hemoglobin 8.6 GM/DL (14.0-18.0); Immature Granulocytes % 0.4 %; Immature Granulocytes Absolute 0.03 #; Lymphocytes # 0.3 10*3/uL (1.4-4.0); Lymphocytes % 3.9 % (21.2-54.2); Mean Corpuscular HGB Conc 30.3 GM/DL (32-36); Mean Corpuscular Volume 99.3 FL (87-102); Monocytes # 0.5 10*3/uL (0.11-0.8); Monocytes % 7.1 % (1.7-12.7); Neutrophils % 74.7 % (38.7-73.9); Platelet Count 150 T/CUMM (130-400); Red Blood Count 2.86 MC/CUMM (3.8-5.5); Red Cell Distribution Width 18.9 % (9.3-17.3); White Blood Count 7.5 T/CUMM (4-12)
[2022-04-28 11:40] LABS: Platelet Estimate Normal
[2022-04-28 11:41] LABS: Anisocytosis 1+
[2022-04-28] MEDS: ROSUVASTATIN 20 MG TABLET PO SCH (12:00)
[2022-04-28] MEDS: MAGNESIUM OXIDE 400 MG TABLET PO SCH (12:00)
[2022-04-28] MEDS: FERROUS SULFATE 325 MG TABLET PO SCH ×2 (12:00→21:38)
[2022-04-28] MEDS: carvediloL 12.5 MG TABLET PO SCH ×2 (12:00→21:38)
[2022-04-28 12:26] LABS: Band Neutrophils 16 % (0-10); Eosinophils 15 % (0-10); Lymphocytes 1 % (20-55); Total Cells Counted 100
[2022-04-28 12:27] LABS: Macrocytosis Slight
[2022-04-28] MEDS: hydrALAZINE 25 MG TABLET PO SCH ×2 (15:13→21:38)
[2022-04-28] MEDS ORDERED: DEXTROSE 50% 25 GM/50 ML SYRINGE IV ONE (17:06)
[2022-04-28] MEDS ORDERED: DEXTROSE 50% 25 GM/50 ML VIAL IV STA (18:17)
[2022-04-29] MEDS ORDERED: DEXTROSE 10% 250 ML BAG IV PRN (01:02)
[2022-04-29] MEDS ORDERED: DEXTROSE 10% 250 ML BAG IV ONE (01:30)
[2022-04-29] MEDS: INSULIN LISPRO 100 UNIT/ML SUBCUT SCH ×3 (01:52→12:06)
[2022-04-29 05:46] LABS: Basophils # 0.1 10*3/uL (0.0-0.2); Eosinophils # 1.1 10*3/uL (0.0-0.87); Eosinophils % 22.2 % (0.00-10.9); Hematocrit 27.4 VOL% (42.0-52.0); Hemoglobin 8.5 GM/DL (14.0-18.0); Immature Granulocytes % 0.4 %; Immature Granulocytes Absolute 0.02 #; Lymphocytes # 0.7 10*3/uL (1.4-4.0); Lymphocytes % 13.3 % (21.2-54.2); Mean Corpuscular Volume 98.2 FL (87-102); Mean Platelet Volume 12.1 FL (9.6-12.0); Monocytes # 0.5 10*3/uL (0.11-0.8); Monocytes % 9.3 % (1.7-12.7); NRBC # 0.02 10*3/uL; Neutrophils % 53.8 % (38.7-73.9); Red Blood Count 2.79 MC/CUMM (3.8-5.5); Red Cell Distribution Width 18.2 % (9.3-17.3)
[2022-04-29 05:48] LABS: Platelet Count 128 T/CUMM (130-400)
[2022-04-29 05:58] LABS: Band Neutrophils 1 % (0-10); Eosinophils 24 % (0-10); Lymphocytes 9 % (20-55); Platelet Estimate Normal; Total Cells Counted 100
[2022-04-29 05:59] LABS: Hypochromia Slight
[2022-04-29 06:06] LABS: Calcium 8.6 MG/DL (8.5-10.1); Osmolality,Calculated 292.3 MOS/KG (273-304); Potassium 4.2 MMOL/L (3.5-5.1)
[2022-04-29] MEDS: ALBUTEROL/IPRATROPIUM 3 ML NEB RESP TX SCH ×2 (07:40→13:10)
[2022-04-29] MEDS: ROSUVASTATIN 20 MG TABLET PO SCH (10:03)
[2022-04-29] MEDS: hydrALAZINE 25 MG TABLET PO SCH ×2 (10:04→16:19)
[2022-04-29] MEDS: carvediloL 12.5 MG TABLET PO SCH (10:04)
[2022-04-29] MEDS: FERROUS SULFATE 325 MG TABLET PO SCH (10:04)
[2022-04-29] MEDS: MAGNESIUM OXIDE 400 MG TABLET PO SCH (10:05)
[2022-04-29] MEDS: FUROSEMIDE 40 MG/4 ML VIAL IV SCH ×2 (10:05→16:19)
[2022-04-29] MEDS: PANTOPRAZOLE INJ 200 MG in SODIUM CHLORIDE 0.9% 250 ML IV SCH (10:46)
[2022-04-29 16:14] VITALS: BP 125/62
[2022-04-30] MEDS ORDERED: PANTOPRAZOLE 40 MG VIAL IV SCH (21:00)
== END 2022-04-29 16:58 | disposition home or self-care (01) | DRG 377 ==
LOC: N.ED 20:38 → N.EDINP 04-28 01:36 → N.TELES 04-28 18:57
PROVIDERS: ADMIT Internal Medicine Geriatric Medicine; ATTEND Internal Medicine Geriatric Medicine